=== PATIENT | female | born 1980 ===

== ENCOUNTER 2017-11-01 17:57 | Emergency (ER) | payer BC ==
--- NOTE | 2017-11-01 18:55 | EDM.PDOC ---
ED HPI GENERAL MEDICAL PROBLEM - General Chief Complaint: General Stated Complaint: PT RETAINING FLUID Time Seen by Provider: 11/01/17 18:54 Source of Information: Reports: Patient - History of Present Illness INITIAL COMMENTS - FREE TEXT/NARRATIVE: HISTORY AND PHYSICAL: History of present illness: [37-year-old female presenting emergency department with chief complaint of joint pain and swelling with no significant past medical history. Patient states that this morning she awoke and had some knee and ankle pain. She felt stiff and has what she feels is associated swelling to her knees ankles and wrists. States that this has never happened before. She did state that she felt nauseous on Sunday and was exposed to influenza recently. She denies any history of rheumatoid arthritis. She denies any chest pain, palpitations, shortness of breath, single episodes, focal neurologic deficits. Patient did not get influenza vaccine this year.] Review of systems: As per history of present illness and below otherwise all systems reviewed and negative. Past medical history: As per history of present illness and as reviewed below otherwise noncontributory. Surgical history: As per history of present illness and as reviewed below otherwise noncontributory. Social history: No reported history of drug or alcohol abuse. Family history: As per history of present illness and as reviewed below otherwise noncontributory. Physical exam: HEENT: Atraumatic, normocephalic, pupils reactive, negative for conjunctival pallor or scleral icterus, mucous membranes moist, throat clear, neck supple, nontender, trachea midline. Lungs: Clear to auscultation, breath sounds equal bilaterally, chest nontender. Heart: S1S2, regular, negative for clicks, rubs, or JVD. Abdomen: Soft, nondistended, nontender. Negative for masses or hepatosplenomegaly. Negative for costovertebral tenderness. Pelvis: Stable nontender. Genitourinary: Deferred. Rectal: Deferred. Extremities: Atraumatic, negative for cords or calf pain. Neurovascular unremarkable. Neuro: Awake, alert, oriented. Cranial nerves II through XII unremarkable. Cerebellum unremarkable. Motor and sensory unremarkable throughout. Exam nonfocal. Diagnostics: [Influenza screen which was negative] Therapeutics: [] Impression: [Viral syndrome] Plan: [Patient was negative for influenza. I did discuss with her that she probably should get the vaccine as it is a bad year for influenza and people have been getting very sick. At this time she does not wish to get influenza vaccine. This is most likely post viral type of arthralgia. I do not appreciate any significant edema on exam. However did give the patient a prescription for meloxicam. She does have a appointment with Dr. Davon Stevenson primary care in the morning. Her normal primary care doctor is Dr. Moon. All questions were entertained and answered and the patient was discharged in good condition with instructions to return to emergency department if she had any new or worsening symptoms.] Definitive disposition and diagnosis as appropriate pending reevaluation and review of above. Generalized Pain Score (Numeric/FACES): 7 - Related Data Allergies Allergy/AdvReac Type Severity Reaction Status Date / Time morphine Allergy Swelling Verified 11/01/17 18:17 Home Meds: Home Meds Meloxicam 7.5 mg PO DAILY 7 Days tablet 11/01/17 [Rx] Past Medical History HEENT History: Reports: None Cardiovascular History: Reports: None Respiratory History: Reports: None Gastrointestinal History: Reports: None Genitourinary History: Reports: None Musculoskeletal History: Reports: None Neurological History: Reports: None Psychiatric History: Reports: None Endocrine/Metabolic History: Reports: None Hematologic History: Reports: None Oncologic (Cancer) History: Reports: None Dermatologic History: Reports: None - Past Surgical History Head Surgeries/Procedures: Reports: None Female Surgical History: Reports: Section Social & Family History - Tobacco Use Smoking Status *Q: Never Smoker Second Hand Smoke Exposure: No - Caffeine Use Caffeine Use: Reports: None - Recreational Drug Use Recreational Drug Use: No ED ROS GENERAL - Review of Systems Review Of Systems: See Below ED EXAM, GENERAL - Physical Exam Exam: See Below Course - Vital Signs Last Recorded V/S: Last Vital Signs Temp 97.6 F 11/01/17 18:14 Pulse 87 11/01/17 18:14 Resp 18 11/01/17 18:14 BP 129/78 11/01/17 18:14 Pulse Ox 98 11/01/17 18:14 Departure - Departure Time of Disposition: 19:45 Disposition: Home, Self-Care 01 Clinical Impression: Viral syndrome - Discharge Information Prescriptions: Meloxicam 7.5 mg PO DAILY 7 Days tablet Referrals: PCP,None [Primary Care Provider] - Forms: ED Department Discharge Additional Instructions: My general discharge The following information is given to patients seen in the emergency department who are being discharged to home. This information is to outline your options for follow-up care. We provide all patients seen in our emergency department with a follow-up referral. The need for follow-up, as well as the timing and circumstances, are variable depending upon the specifics of your emergency department visit. If you don't have a primary care physician on staff, we will provide you with a referral. We always advise you to contact your personal physician following an emergency department visit to inform them of the circumstance of the visit and for follow-up with them and/or the need for any referrals to a consulting specialist. The emergency department will also refer you to a specialist when appropriate. This referral assures that you have the opportunity for follow-up care with a specialist. All of these measure are taken in an effort to provide you with optimal care, which includes your follow-up. Under all circumstances we always encourage you to contact your private physician who remains a resource for coordinating your care. When calling for follow-up care, please make the office aware that this follow-up is from your recent emergency room visit. If for any reason you are refused follow-up, please contact the [facility] Emergency Department at and asked to speak to the emergency department charge nurse. [facility] [address] [place] [id number]
== END 2017-11-01 19:59 | disposition home or self-care (01) ==
LOC: MW.ED 17:57
DX: B34.9 Viral infection, unspecified (principal); Z88.5 Allergy status to narcotic agent; Z79.899 Other long term (current) drug therapy
CPT/HCPCS: 87804; 99283; 99284

== ENCOUNTER 2020-10-13 13:37 | Emergency (ER) | payer BC ==
--- NOTE | 2020-10-13 13:47 | EDM.PDOC ---
ED HPI GENERAL MEDICAL PROBLEM - General Chief Complaint: General Stated Complaint: clinic referal Time Seen by Provider: 10/13/20 13:38 Source of Information: Reports: Patient History Limitations: Reports: No Limitations - History of Present Illness INITIAL COMMENTS - FREE TEXT/NARRATIVE: HISTORY AND PHYSICAL: History of present illness: Patient is a 40-year-old female who presents to the emergency room from the clinic after having abnormal lab values. Patient states over the past 5 days she has had a cough, mild headache, nausea, vomiting and loss of taste and smell over the past 5 days. At the clinic she had some basic lab work done which revealed her potassium was low. Her COVID test results are pending, although concerned she may have COVID-19. Patient denies any fever, chills, change in vision, syncope or near syncope. Denies any chest pain, back pain, shortness of breath, abdominal pain, diarrhea, constipation or dysuria. Has not noted any blood in urine or stool. She has no concern for , total hysterectomy. Patient has been eating and drinking appropriately. Review of systems: As per history of present illness and below otherwise all systems reviewed and negative. Past medical history: As per history of present illness and as reviewed below otherwise noncontributory. Surgical history: As per history of present illness and as reviewed below otherwise noncontributory. Social history: See social history for further information Family history: As per history of present illness and as reviewed below otherwise noncontributory. Physical exam: General: Well developed and well nourished. Alert and orientated x 3. Nontoxic in appearance and in no acute distress. Vital signs are stable and have been reviewed by me. Nursing notes were reviewed. HEENT: Atraumatic, normocephalic, pupils equal and reactive bilaterally, negative for conjunctival pallor or scleral icterus, mucous membranes moist, TMs normal bilaterally, throat clear, neck supple, nontender, trachea midline. No drooling or trismus noted. No meningeal signs. No hot potato voice noted. Lungs: Clear to auscultation bilaterally. No wheezes, rales, or rhonchi. Chest nontender. Normal work of breathing, no accessory muscles used. Heart: S1S2, regular rate and rhythm without overt murmur, gallops, or rubs. No JVD. No peripheral edema Abdomen: Soft, nondistended, nontender. Normoactive bowel sounds. Negative for masses or costovertebral tenderness. Skin: Intact, warm, dry. No lesions or rashes noted. Hematologic: No petechiae or purpra. Mucosa appropriate color and normal nail bed color and refill. Extremities: Atraumatic, moves all extremities per self without difficulty or deficits, negative for cords or calf pain. Neurovascular unremarkable. Neuro: Awake, alert, oriented. Cranial nerves II through XII unremarkable. Cerebellum unremarkable. Motor and sensory unremarkable throughout. Exam nonfocal. Psychiatric: Mood and affect are appropriate. Normal thought process. Answering questions appropriately. Notes: *This patient was seen and evaluated during the 2019 SARS-CoV-2 novel coronavirus pandemic period. Community viral transmission is ongoing at time of this encounter and the emergency department is operating under pandemic response procedures. Patient had Zofran 4mg IM DRAG SEINER in clinic. Labs had been done previously in the clinic just an hour prior to patient's arrival. Her CBC is within normal limits although her chemistry does show a potassium of 3.0. The COVID-19 screening they had done is a send out, would not get results on this for 2 to 3 days. We will do a rapid 1 through the emergency room along with a chest x-ray. Patient did test positive for COVID-19. Her vital signs are stable. She has received IV fluids along with IV potassium replacement, given IV as she has been nauseated. I have talked with the patient about today's findings, in addition to providing specific details for plan of care. Reassessment at the time of disposition demonstrates that the patient is in no acute distress. The patient is stable for discharge, counseling was provided and we discussed in great detail signs and symptoms that would prompt them to return to the Emergency Department. Medication, follow up and supportive care measures were reviewed and discussed. Voices understanding and is agreeable to plan of care. Denies any further questions or concerns at this time. Diagnostics: (See Clinic lab results) COVID, CXR, EKG, UA Therapeutics: IV fluids, Prescription: Zofran, K-Dur 40meQ x 5 days Impression: COVID-19 Hypokalemia Plan: 1. Your COVID-19 screening is positive. That means you do have the coronavirus and you are considered contagious. Your vital signs and oxygen saturation are well enough that you were able to monitor your symptoms at home. Your potassium is low, please take the potassium replacement as directed. Continue to monitor for trouble breathing, new confusion or inability to arouse, bluish lips or face or any of the other symptoms we discussed -if this occurs please return to the emergency room. 2. Please self quarantine over the next 7-10 days (The State will release you back to work). Inform any persons that you have been in contact with since you started becoming symptomatic that you have tested positive; they should be made aware and take the appropriate steps as needed. 3. Zofran for nausea management, take as directed. You can take NyQuil during the evening to help get a restful night sleep. May alternate Tylenol and ibuprofen as needed for pain and fever management. 4. The [facility] will be calling you and following up with you. The [place] [employer] Hotline phone number , They are open Sunday - Sunday 7am - 7pm. Follow up with your primary care provider for re-evaluation and re-testing after the 10 day quarantine and discuss when you should be seen. Definitive disposition and diagnosis as appropriate pending reevaluation and r delfino of above. generalized Pain Score (Numeric/FACES): 10 - Related Data Allergies Allergy/AdvReac Type Severity Reaction Status Date / Time morphine Allergy Swelling Verified 10/13/20 13:47 Home Meds: Home Meds Meloxicam 7.5 mg PO DAILY 7 Days tablet 11/01/17 [Rx] Ondansetron [Zofran ODT] 4 mg PO Q6H PRN #8 tab.dis 10/13/20 [Rx] Potassium Chloride [Klor-Con M20] 40 meq PO DAILY 5 Days #10 tab.er.prt 10/13/20 [Rx] Past Medical History HEENT History: Reports: None Cardiovascular History: Reports: None Respiratory History: Reports: None Gastrointestinal History: Reports: None Genitourinary History: Reports: None Musculoskeletal History: Reports: None Neurological History: Reports: None Psychiatric History: Reports: None Endocrine/Metabolic History: Reports: None Hematologic History: Reports: None Oncologic (Cancer) History: Reports: None Dermatologic History: Reports: None - Past Surgical History Head Surgeries/Procedures: Reports: None Female Surgical History: Reports: Section Social & Family History - Caffeine Use Caffeine Use: Reports: None ED ROS GENERAL - Review of Systems Review Of Systems: Comprehensive ROS is negative, except as noted in HPI. ED EXAM, GENERAL - Physical Exam Exam: See Below (See dictation) Course - Vital Signs Last Recorded V/S: Last Vital Signs Temp 98.2 F 10/13/20 13:44 Pulse 80 10/13/20 14:49 Resp 16 10/13/20 14:19 BP 97/56 L 10/13/20 14:49 Pulse Ox 96 10/13/20 14:49 - Orders/Labs/Meds Orders: Active Orders 24 hr Category Date Time Status EKG Documentation Completion [RC] STAT Care 10/13/20 13:53 Active UA RFX SAMIR AND CULT IF INDIC [URIN] Stat Lab 10/13/20 13:53 Ordered Potassium Chloride Riders [KCL in Water 40 MEQ/100 ML] Med 10/13/20 13:49 Active 40 meq Premix Bag 1 bag IV ONETIME Medication Orders Potassium Chloride 40 meq/ (Premix) 100 mls @ 25 mls/hr IV ONETIME ONE Stop: 10/13/20 17:48 Last Admin: 10/13/20 14:01 Dose: 25 mls/hr Documented by: [id number] Labs: Laboratory Tests 10/13/20 Range/Units 13:55 Influenza Type A RNA NEGATIVE (NEGATIVE) Influenza Type B RNA NEGATIVE (NEGATIVE) SARS-CoV-2 RNA (ZANDRA) POSITIVE H (NEGATIVE) Meds: Medications Generic Name Dose Route Start Last Admin Trade Name Freq PRN Reason Stop Dose Admin Potassium Chloride 40 meq/ 100 mls @ 25 mls/hr 10/13/20 13:49 10/13/20 14:01 Premix IV 10/13/20 17:48 25 mls/hr ONETIME ONE Administration Discontinued Medications Generic Name Dose Route Start Last Admin Trade Name Freq PRN Reason Stop Dose Admin Sodium Chloride 1,000 mls @ 999 mls/hr 10/13/20 13:54 10/13/20 13:58 Normal Saline IV 10/13/20 14:54 999 mls/hr STAT ONE Administration Sodium Chloride 1,000 mls @ 999 mls/hr 10/13/20 13:55 Normal Saline IV 10/13/20 14:55 .Bolus ONE Ketorolac Tromethamine 30 mg 10/13/20 13:53 10/13/20 13:58 Toradol IVPUSH 10/13/20 13:54 30 mg ONETIME ONE Administration Departure - Departure Time of Disposition: 15:24 Disposition: Home, Self-Care 01 Clinical Impression: COVID-19, Hypokalemia - Discharge Information Prescriptions: Potassium Chloride [Klor-Con M20] 40 meq PO DAILY 5 Days #10 tab.er.prt Ondansetron [Zofran ODT] 4 mg PO Q6H PRN #8 tab.dis PRN Reason: Nausea Referrals: Linn Nova MD [Primary Care Provider] - Forms: ED Department Discharge Additional Instructions: The following information is given to patients seen in the emergency department who are being discharged to home. This information is to outline your options for follow-up care. We provide all patients seen in our emergency department with a follow-up referral. The need for follow-up, as well as the timing and circumstances, are variable depending upon the specifics of your emergency department visit. If you don't have a primary care physician on staff, we will provide you with a referral. We always advise you to contact your personal physician following an emergency department visit to inform them of the circumstance of the visit and for follow-up with them and/or the need for any referrals to a consulting specialist. The emergency department will also refer you to a specialist when appropriate. This referral assures that you have the opportunity for follow-up care with a specialist. All of these measure are taken in an effort to provide you with optimal care, which includes your follow-up. Under all circumstances we always encourage you to contact your private physician who remains a resource for coordinating your care. When calling for follow-up care, please make the office aware that this follow-up is from your recent emergency room visit. If for any reason you are refused follow-up, please contact the [facility] Emergency Department at and asked to speak to the emergency department charge nurse. [facility] [address] [place] [address] [id number] [address] [address] Thank you for choosing the [facility] emergency department in [place] for your medical needs today. It was a pleasure caring for you. Today you were seen in the emergency department for COVID symptoms. 1. Your COVID-19 screening is positive. That means you do have the coronavirus and you are considered contagious. Your vital signs and oxygen saturation are well enough that you were able to monitor your symptoms at home. Your potassium is low, please take the potassium replacement as directed. Continue to monitor for trouble breathing, new confusion or inability to arouse, bluish lips or face or any of the other symptoms we discussed -if this occurs please return to the emergency room. 2. Please self quarantine over the next 7-10 days (The State will release you back to work). Inform any persons that you have been in contact with since you started becoming symptomatic that you have tested positive; they should be made aware and take the appropriate steps as needed. 3. Zofran for nausea management, take as directed. You can take NyQuil during the evening to help get a restful night sleep. May alternate Tylenol and ibuprofen as needed for pain and fever management. 4. The [facility] department will be calling you and following up with you. The [place] [employer] Hotline phone number , They are open Sunday - Sunday 7am - 7pm. Follow up with your primary care provider for re-evaluation and re-testing after the 10 day quarantine and discuss when you should be seen. Sepsis Event Note (ED) - Focused Exam Vital Signs: Vital Signs Temp Pulse Resp BP Pulse Ox 10/13/20 14:49 80 97/56 L 96 10/13/20 14:19 85 16 89/30 L 97 10/13/20 13:44 98.2 F 90 20 111/65 95 - My Orders Last 24 Hours: My Active Orders 10/13/20 13:49 Potassium Chloride Riders [KCL in Water 40 MEQ/100 ML] 40 meq Premix Bag 1 bag IV ONETIME 10/13/20 13:53 EKG Documentation Completion [RC] STAT UA RFX SAMIR AND CULT IF INDIC [URIN] Stat - Assessment/Plan Last 24 Hours: My Active Orders 10/13/20 13:49 Potassium Chloride Riders [KCL in Water 40 MEQ/100 ML] 40 meq Premix Bag 1 bag IV ONETIME 10/13/20 13:53 EKG Documentation Completion [RC] STAT UA RFX SAMIR AND CULT IF INDIC [URIN] Stat
[2020-10-13] MEDS ORDERED: Potassium Chloride Riders 40 MEQ in Premix Bag 1 BAG IV ONE (13:49)
[2020-10-13] MEDS ORDERED: Ketorolac 30 MG/ML SDV IVPUSH ONE (13:53)
[2020-10-13] MEDS ORDERED: Sodium Chloride 0.9% 1,000 ML IV ONE ×2 (13:54→13:55)
--- NOTE | 2020-10-13 14:29 | CR ---
INDICATION: Chest pain. Shortness breath. COMPARISON: none TECHNIQUE: Portable AP erect chest performed at 2:07 p.m. FINDINGS: The lungs are clear. There is no evidence of pneumothorax. The heart, mediastinum and pulmonary vessels are of normal size. There is no evidence of pleural fluid. IMPRESSION: Negative chest. Dictated by Jimi Brown MD @ Oct 13 2020 2:25PM Signed by Dr. Jimi Brown @ Oct 13 2020 2:26PM
[2020-10-13 15:00] LABS: CORONAVIRUS COVID-19 NAA POSITIVE (NEGATIVE); INFLUENZA A NAA NEGATIVE (NEGATIVE); INFLUENZA B NAA NEGATIVE (NEGATIVE)
--- NOTE | 2020-10-13 15:54 | PCM.SN.2 ---
#1 Interpretation EKG Date: 10/13/20 Time: 13:58 Rhythm: NSR Rate (Beats/Min): 79 [place]: Normal P-Wave: Present QRS: Normal ST-T: Normal QT: Normal HI/PQ Interval: 123 EKG Interpretation Comments: non-ischemic, normal EKG
== END 2020-10-13 16:26 | disposition home or self-care (01) ==
LOC: MW.ED 13:37
DX: U07.1 COVID-19 (principal); E87.6 Hypokalemia; Z88.5 Allergy status to narcotic agent
CPT/HCPCS: 0240U; 71045; 93005; 96365; 96366; 96375; 99285; J1885; J3480; J7030; 93010; 99284